=== PATIENT | male | born 1990 | race African-American/Black ===

== ENCOUNTER 2020-01-23 05:18 | Emergency (ER) | payer OTHER, SELFPAY ==
[2020-01-23 05:20] VITALS: BP 144/88; PULSE 103; RESP 16; TEMP 36.8; O2SAT 96; BMI 24.1
--- NOTE | 2020-01-23 05:23 | ED.GENADULT ---
HPI - General Adult General Chief complaint: Dental/Oral Stated complaint: tooth abcess/drank peroxide/not feeling good Time Seen by Provider: 01/23/20 05:19 Source: patient Mode of arrival: Ambulatory Limitations: no limitations History of Present Illness HPI narrative: Patient is a 29-year-old male here for evaluation of left lower back tooth pain. Patient states that has been hurting for the past couple days but worsened over the past 24 hours. States that and general he does not feel very well. In triage he stated that he drank some peroxide however he states that on a normal basis he cleans his toothbrush with peroxide before he brushes his teeth. He thinks that potentially he swallowed a little bit of liquid off of his toothbrush earlier today. Denies any abdominal pain. States that he has been taking ibuprofen for the discomfort without any help. States that he has had some green material come from the area with brushing his teeth. Related Data Previous Rx's Medication Instructions Recorded penicillin V potassium 500 mg PO QID 7 Days #28 tab 01/23/20 Allergies Allergy/AdvReac Type Severity Reaction Status Date / Time No Known Drug Allergies Allergy Verified 01/23/20 05:30 Review of Systems Constitutional Constitutional: Denies headache(s) and Reports malaise ENT Ears, Nose, Mouth, and Throat: Reports dental pain, Denies otalgia, Denies headache(s), Denies neck pain, Denies sinus pain, Denies sinus pressure, Denies sore throat and Denies throat swelling Cardiovascular Cardiovascular: Denies dyspnea Respiratory Respiratory: Denies dyspnea Musculoskeletal Musculoskeletal: Denies neck pain Integumentary/Breasts Skin/Breast: Denies rash Neurologic Neurologic: Denies headache(s) Allergic/Immunologic Allergic/Immunologic: Denies throat swelling Patient History Medical History Healthy adult (Acute) Social History Smoking Status: Current some day smoker Exam Initial Vital Signs Initial Vital Signs: Vital Signs Temperature 98.3 F 01/23/20 05:20 Pulse Rate 103 H 01/23/20 05:20 Respiratory Rate 16 01/23/20 05:20 Blood Pressure 144/88 H 01/23/20 05:20 Pulse Oximetry 96 01/23/20 05:20 Const General: cooperative and comfortable HENMT Head: normal to inspection and normocephalic Ears: TM's normal bilaterally Nose: external nose normal Face and sinus: normal facial exam Mouth: oral mucosae normal, lip normal, tongue normal and moist mucous membranes Teeth and gingiva: fair dentition and other (Left posterior 2nd molar with obvious caries) Resp Effort & Inspection: normal respiratory effort Auscultation: clear to auscultation bilaterally Skin Lesions: no lesions Rashes: no rashes Neuro General: patient alert, patient awake and patient oriented x3 Extrem General: capillary refill normal Psych Appearance: grossly normal and well kempt Course Orders Ordered: Discontinued Medications Hydrocodone Bitart/Acetaminophen (Vicodin 5/325 Prepack) 1 bottle MISC SEEINSTR ONE Stop: 01/23/20 05:51 Penicillin V Potassium (Veetids) 500 mg PO NOW ONE Stop: 01/23/20 05:51 Vital Signs Vital signs: Vital Signs - 8 hr 01/23/20 05:20 Temperature 98.3 F Pulse Rate 103 H Respiratory Rate 16 Blood Pressure 144/88 H Pulse Oximetry 96 Medical Decision Making MDM Narrative Medical decision making narrative: Given the patient's discomfort and the fact that he has had reported green material coming from the area with brushing his teeth will start the patient on antibiotics. Was given 1st dose here in the ER and will send home with a remainder prescription. Patient has obvious caries to his left posterior 2nd molar. There is no defined abscess that can be drained here in the ER. I did put dental cement over the area see if this would not help his symptoms. We did discuss this and the potential that this is only a very temporary solution. Informed him that he did need to see a dentist regarding the issues. Patient expressed understanding and agreement plan. Discharge Plan Departure Patient Disposition: Home Clinical Impression: Toothache Instructions: DI for Dental Pain Activity Restrictions/Additional Instructions: Take the antibiotics as directed. You were given your 1st dose here in the ER. Use the pain medication that you were given here in the ER only for breakthrough pain. Recommend that you take Motrin/ibuprofen has baseline pain control medication. Definitive treatment of your tooth issue needs to be handled by a dentist. Is important that you follow-up with someone regarding this issue. Prescriptions: New penicillin V potassium 500 mg tablet 500 mg PO QID 7 Days Qty: 28 RF: 0
[2020-01-23] MEDS: HYDROCODONE/ACET 5/325 PREPACK 1 BOTTLE MISC (05:57)
[2020-01-23] MEDS: PENICILLIN VK 250 MG TABLET 500 MG PO (05:57)
[2020-01-23 06:04] VITALS: BP 125/80; PULSE 80; RESP 18; O2SAT 98
== END 2020-01-23 06:06 | disposition home or self-care (01) ==
PROVIDERS: Emergency Provider Emergency Medicine
DX: K08.89 Other specified disorders of teeth and supporting structures (principal)
CPT/HCPCS: 99283

== ENCOUNTER 2020-06-19 23:48 | Emergency (ER) | payer OTHER, MEDICAID, SELFPAY ==
--- NOTE | 2020-06-19 23:55 | DI.RAD.S_ITS ---
PROCEDURE: XR WRIST RT MIN 3V INDICATIONS: pain after dropping an object on it TECHNIQUE: 4 views of the wrist were acquired. COMPARISON: None. FINDINGS: Bones: Mildly displaced fracture of the ulnar styloid process. Scaphoid view: Scaphoid is intact. Soft tissues: No suspicious soft tissue calcifications. IMPRESSION: Ulnar styloid process fracture. Dictated by: Stefania Maki MD, PhD on 06/20/2020 at 9:22 Approved by: Stefania Maki MD, PhD on 06/20/2020 at 9:22
[2020-06-19 23:56] VITALS: BP 145/100; PULSE 109; RESP 17; TEMP 36.9; O2SAT 100; BMI 25.2
--- NOTE | 2020-06-19 23:59 | ED_ITS ---
HPI - General Adult General Chief complaint: Extremity Injury, Upper Stated complaint: right wrist - pain for several weeks Time Seen by Provider: 06/19/20 23:49 Source: patient Mode of arrival: Ambulatory Limitations: no limitations History of Present Illness HPI narrative: 30-year-old male here for evaluation of right wrist pain. He states that approximately 3 weeks ago he had a 80 lb object fall on his wrist. He states since that time he has had pain and swelling on the back of his right wrist. Has had limited range of motion. Has been using alcohol to try to help with the pain. Has had no prior injuries to his wrist. No fevers. This the 1st time he has been evaluated for this. Related Data Allergies Allergy/AdvReac Type Severity Reaction Status Date / Time No Known Drug Allergies Allergy Verified 01/23/20 05:30 Review of Systems Constitutional Constitutional: Denies fever(s) Musculoskeletal Musculoskeletal: Denies tingling Comments: Right wrist pain Integumentary/Breasts Skin/Breast: Denies lesions and Denies rash Neurologic Neurologic: Denies tingling Hematologic/Lymphatic Hematologic/Lymphatic: Denies easy bleeding and Denies easy bruising Allergic/Immunologic Allergic/Immunologic: Denies urticaria Patient History Medical History Healthy adult Social History Smoking Status: Current some day smoker Smoking Status: Current some day smoker alcohol intake frequency: 0-2 drinks per day Substance Use Type: does not use Exam Initial Vital Signs Initial Vital Signs: Vital Signs Temperature 98.4 F 06/19/20 23:56 Pulse Rate 109 H 06/19/20 23:56 Respiratory Rate 17 06/19/20 23:56 Blood Pressure 145/100 H 06/19/20 23:56 Pulse Oximetry 100 06/19/20 23:56 Const General: cooperative and comfortable HENMT Head: normal to inspection and normocephalic Cardio Pulses: radial pulses present on the right Skin Lesions: no lesions Rashes: no rashes Neuro Sensory Exam: no sensory deficits noted Extrem General: capillary refill normal Other: Tenderness to palpation along the distal ulna. Also swelling around that area. Limited range of motion with flexion and extension also pronation supination. His right elbow right shoulder unremarkable. Procedures Orthopedic Splinting/Casting Injury #1: Side: right Upper Extremity Injury Location: wrist Upper Extremity Immobilizer: volar splint Post splinting neuro exam: intact Post splinting vascular exam: intact Placed by: Provider Course Orders Ordered: ED Orders 06/19/20 23:55 XR wrist RT min 3V Stat Vital Signs Vital signs: Vital Signs - 8 hr 06/19/20 23:56 06/20/20 00:51 Temperature 98.4 F Pulse Rate 109 H 88 Respiratory Rate 17 16 Blood Pressure 145/100 H 110/88 Pulse Oximetry 100 98 Medical Decision Making Imaging Data Extremity x-ray #1: Radiologist's Impression: Isolated ulnar styloid fracture MDM Narrative Medical decision making narrative: Patient is neurovascularly intact. Injury occurred approximately 3 weeks ago. X-ray today shows a isolated ulnar styloid fracture. I suspect that he is continued to have discomfort because it has not been immobilized. He was placed in a volar splint. Was given follow-up instructions a care instructions. Was given phone number for orthopedic follow- up. He expressed understanding and agreement. Discharge Plan Departure Patient Disposition: Home Clinical Impression: Fracture of right ulnar styloid Qualifiers: Encounter type: initial encounter Fracture type: closed Fracture alignment: nondisplaced Qualified Code(s): S52.614A - Nondisplaced fracture of right ulna styloid process, initial encounter for closed fracture Instructions: DI for Wrist Fracture, How to Take Care of Your Splint Activity Restrictions/Additional Instructions: The splint that was placed here in the emergency department needs to be treated like a cast. Keep it on and keep it clean and keep it dry. Recommend that tomorrow you contact the [facility] at [phone]. You can take Tylenol and/or ibuprofen for any discomfort. Return to the emergency department for any new or worsening symptoms
[2020-06-20 00:51] VITALS: BP 110/88; PULSE 88; RESP 16; O2SAT 98
== END 2020-06-20 00:50 | disposition home or self-care (01) ==
PROVIDERS: Emergency Provider Emergency Medicine
DX: S52.614A Nondisplaced fracture of right ulna styloid process, initial encounter for closed fracture (principal); W22.8XXA Striking against or struck by other objects, initial encounter
CPT/HCPCS: 29125; 73110; 99283

== ENCOUNTER 2020-12-02 10:27 | Emergency (ER) | payer OTHER, MEDICAID, SELFPAY ==
[2020-12-02 10:33] VITALS: BP 123/81; PULSE 107; RESP 18; TEMP 35.8; O2SAT 96; BMI 26.8
--- NOTE | 2020-12-02 10:37 | DI.RAD.S_ITS ---
PROCEDURE: XR ANKLE LT MIN 3V INDICATIONS: swelling TECHNIQUE: 3 views of the ankle were acquired. COMPARISON: None. FINDINGS: Bones: No fractures or dislocations. Ankle mortise is normally aligned. No suspicious bony lesions. Soft tissues: No tibiotalar joint effusion. Achilles tendon appears normal. IMPRESSION: No evidence acute bony abnormality of the left ankle. If clinical suspicion and/or symptoms persist, further assessment with repeat plain films, or advanced imaging (e.g., CT, MRI, or bone scan) may be helpful for further assessment. Dictated by: Juan C Henning M.D. on 12/02/2020 at 9:55 Approved by: Juan C Henning M.D. on 12/02/2020 at 9:56
== END 2020-12-02 14:25 | disposition home or self-care (01) ==
PROVIDERS: Emergency Provider Emergency Medicine
DX: M25.472 Effusion, left ankle (principal); M25.572 Pain in left ankle and joints of left foot
CPT/HCPCS: 73610; 99283